=== PATIENT | female | born 1955 | race Caucasian/White ===

== ENCOUNTER 2021-02-21 18:37 | Emergency (ER) | payer OTHER ==
[~2021-02-21] VITALS: Ht 160 cm; Wt 90.7 kg
--- NOTE | 2021-02-21 18:40 | NUR ---
BIB [facility] 40 FROM HOME,CHEST PAIN SINCE 1230,ASA AND NITRO GIVEN. PATIENT A/OX4, BREATHING EVEN AND UNLABORED, UPON ARRIVAL PATIENT STS CHEST PAIN RESOLVED. PLACED ON THE SENIOR CATEGORY MANAGER.
--- NOTE | 2021-02-21 18:42 | NUR ---
PT STS SHE WAS GIVEN NITRO SPRAYS AND ASA 4 TABS FROM THE PARAMEDICS.
--- NOTE | 2021-02-21 18:50 | NUR ---
DR. MURILLO AT BEDSIDE FOR EVAL.
[2021-02-21 18:53] LABS: BASOPHILS # (AUTO) 0.1 K/uL (0.0-0.2); BASOPHILS % (AUTO) 0.9 % (0.0-2.0); EOSINOPHILS % (AUTO) 0.2 % (0.0-6.0); HEMATOCRIT 33 % (33-45); HEMOGLOBIN 11.2 g/dL (11.5-14.8); LYMPHOCYTES # (AUTO) 0.3 K/uL (0.8-4.8); LYMPHOCYTES % (AUTO) 5.5 % (20.0-44.0); MEAN CORPUSCULAR HGB CONC 34 g/dl (31.0-36.0); MEAN CORPUSCULAR VOLUME 89 fL (82-100); MONOCYTES # (AUTO) 0.6 K/uL (0.1-1.30); MONOCYTES % (AUTO) 9.5 % (2.0-12.0); NEUTROPHILS # (AUTO) 4.9 K/uL (1.8-8.9); NEUTROPHILS % (AUTO) 83.9 % (43.0-81.0); PLATELET COUNT (AUTO) 244 K/uL (150-450); RED BLOOD CELL COUNT(AUTO) 3.72 MIL/uL (4.0-5.2); WHITE BLOOD COUNT (AUTO) 5.9 K/uL (4.3-11.0)
--- NOTE | 2021-02-21 18:55 | NUR ---
IV LINE ESTABLISHED, BLOOD DRAWN AND SENT TO LAB.
[2021-02-21] MEDS ORDERED: ASPIRIN 325 MG TABLET PO ONE (19:00)
[2021-02-21] MEDS ORDERED: NITROGLYCERIN 0.4 MG/TAB BOTTLE SL ONE (19:00)
[2021-02-21 19:02] LABS: CARBON DIOXIDE 27 mmol/L (21-32); CHLORIDE 100 mmol/L (98-107); CREATININE 1.1 mg/dL (0.6-1.3); GLUCOSE 160 mg/dL (74-106); POTASSIUM 3.6 mmol/L (3.5-5.1); SODIUM SERUM 138 mmol/L (136-145); UREA NITROGEN, BLOOD 23 mg/dL (7-18)
--- NOTE | 2021-02-21 19:11 | NUR ---
BIOPHYSICS PROFESSOR AT BEDSIDE FOR XRAY.
[2021-02-21] MEDS ORDERED: METOCLOPRAMIDE HCL 10 MG/2 ML VIAL IV ONE (20:30)
[2021-02-21] MEDS ORDERED: KETOROLAC TROMETHAMINE INJ 30 MG/ML VIAL IV ONE (20:30)
[2021-02-21] MEDS ORDERED: IV NS 0.9% 1,000 ML BAG IV ONE (20:30)
[2021-02-21] MEDS ORDERED: METOCLOPRAMIDE HCL 10 MG/2 ML VIAL ONE (20:56)
[2021-02-21] MEDS ORDERED: KETOROLAC TROMETHAMINE 15 MG/ML VIAL ONE (20:56)
--- NOTE | 2021-02-21 21:15 | NUR ---
Pt c/o pain at IV line at LAC, IV removed. Catheter intact and site benign. Pressure and 4x4 applied to site. No bleeding noted. Inserted another IV line at RAC 20g, patent and flushing well. No s/s of infiltration.
--- NOTE | 2021-02-21 21:45 | NUR ---
COVID SWAB COLLECTED AND SENT TO LAB
--- NOTE | 2021-02-21 22:26 | NUR ---
CALL FROM LAB. RAPID COVID POSITIVE.
[2021-02-21 23:17] VITALS: BP 117/77
--- NOTE | 2021-02-21 23:17 | NUR ---
Patient discharged to home in stable condition. Written and verbal after care instructions given. Patient verbalizes understanding of instruction.
--- NOTE | 2021-02-21 23:17 | NUR ---
IV removed. Catheter intact and site benign. Pressure and 4x4 applied to site. No bleeding noted.
--- NOTE | 2021-02-21 23:17 | NUR ---
VALERIANO, SON, PICKED UP PATIENT.
== END 2021-02-21 23:17 | disposition home or self-care (01) ==
LOC: ER 18:58
DX: U07.1 COVID-19 (principal); R07.9 Chest pain, unspecified; R94.31 Abnormal electrocardiogram [ECG] [EKG]; I10 Essential (primary) hypertension; Z85.038 Personal history of other malignant neoplasm of large intestine; Z90.49 Acquired absence of other specified parts of digestive tract; Z92.21 Personal history of antineoplastic chemotherapy; Z88.0 Allergy status to penicillin
CPT/HCPCS: 36415; 71045; 80048; 83880; 84484 ×2; 85025; 87426; 93005; 96361; 96374; 96375; 99291; C9803; J1885; J2765

== ENCOUNTER 2021-02-25 11:17 | Emergency (ER) | payer OTHER ==
[~2021-02-25] VITALS: Ht 160 cm; Wt 90.7 kg
[2021-02-25] MEDS ORDERED: METOCLOPRAMIDE HCL 10 MG/2 ML VIAL IV ONE (12:00)
[2021-02-25] MEDS ORDERED: IV NS 0.9% 1,000 ML BAG IV ONE (12:00)
--- NOTE | 2021-02-25 12:00 | NUR ---
patient came in to the er c/o generalized body pain, covid positive. On room air, breathing evenly and unlabored. Connected to the monitor and pulse ox. Kept comfortable, will continue to monitor accordingly.
[2021-02-25] MEDS ORDERED: METOCLOPRAMIDE HCL 10 MG/2 ML VIAL ONE (12:07)
[2021-02-25 12:19] LABS: BASOPHILS % (AUTO) 0.5 % (0.0-2.0); HEMATOCRIT 36 % (33-45); HEMOGLOBIN 12.2 g/dL (11.5-14.8); LYMPHOCYTES # (AUTO) 0.6 K/uL (0.8-4.8); LYMPHOCYTES % (AUTO) 12.1 % (20.0-44.0); MEAN CORPUSCULAR HGB CONC 34 g/dl (31.0-36.0); MEAN CORPUSCULAR VOLUME 89 fL (82-100); MONOCYTES # (AUTO) 0.2 K/uL (0.1-1.30); MONOCYTES % (AUTO) 4.7 % (2.0-12.0); NEUTROPHILS # (AUTO) 4.1 K/uL (1.8-8.9); NEUTROPHILS % (AUTO) 82.7 % (43.0-81.0); PLATELET COUNT (AUTO) 190 K/uL (150-450); RED BLOOD CELL COUNT(AUTO) 4.07 MIL/uL (4.0-5.2)
[2021-02-25 12:24] LABS: CALCIUM, SERUM 7.9 mg/dL (8.5-10.1); CARBON DIOXIDE 27 mmol/L (21-32); CHLORIDE 98 mmol/L (98-107); CREATININE 1.5 mg/dL (0.6-1.3); GLUCOSE 181 mg/dL (74-106); POTASSIUM 3.6 mmol/L (3.5-5.1); SODIUM SERUM 136 mmol/L (136-145); UREA NITROGEN, BLOOD 24 mg/dL (7-18)
--- NOTE | 2021-02-25 12:25 | NUR ---
IV started and blood drawned and sent to lab.
[2021-02-25 12:30] LABS: ALANINE AMINOTRANSFERASE 50 U/L (12-78); ALBUMIN 3.5 g/dL (3.4-5.0); ALKALINE PHOSPHATASE 64 U/L (46-116); ASPARTATE AMINOTRANSFERASE 41 U/L (15-37); BILIRUBIN,DIRECT 0.1 mg/dL (0.0-0.2); BILIRUBIN,TOTAL 0.2 mg/dL (0.2-1.0); LIPASE 339 U/L (73-393); TOTAL PROTEIN, SERUM 7.3 g/dL (6.4-8.2)
[2021-02-25] MEDS ORDERED: PROCHLORPERAZINE EDISYLATE 10 MG/2 ML VIAL ONE (13:29)
[2021-02-25] MEDS ORDERED: HALOPERIDOL LACTATE INJ 5 MG/ML VIAL ONE (13:29)
[2021-02-25] MEDS ORDERED: PROCHLORPERAZINE EDISYLATE 10 MG/2 ML VIAL IVP ONE (13:30)
[2021-02-25] MEDS ORDERED: HALOPERIDOL LACTATE INJ 5 MG/ML VIAL IV ONE (13:30)
[2021-02-25] MEDS ORDERED: PROC5TAB59 PO (13:41)
[2021-02-25 14:14] VITALS: BP 140/60
--- NOTE | 2021-02-25 14:15 | NUR ---
Patient discharged to home in stable condition. Written and verbal after care instructions given. Patient verbalizes understanding of instruction.IV removed. Catheter intact and site benign. Pressure and 4x4 applied to site. No bleeding noted.
== END 2021-02-25 14:15 | disposition home or self-care (01) ==
LOC: ER 11:20
DX: U07.1 COVID-19 (principal); R11.2 Nausea with vomiting, unspecified; I10 Essential (primary) hypertension; E11.9 Type 2 diabetes mellitus without complications; Z85.038 Personal history of other malignant neoplasm of large intestine; Z88.0 Allergy status to penicillin; Z60.2 Problems related to living alone; Z79.899 Other long term (current) drug therapy
CPT/HCPCS: 36415; 71045; 80048; 80076; 83690; 84484; 85025; 96361; 96374; 96375; 99284; J0780; J1630; J2765; J7030